=== PATIENT | female | born 1965 | race Caucasian/White ===

== ENCOUNTER → 2019-04-13 | Day surgery (SDC) | payer MEDICARE ==
[~2019-04-13] MED LIST: ACETAMINOPHEN325 M1 PO; ADVAIR 500/501 EA INH; ALBUTEROL0.63 MG/3 INH; BENADRYL25 M1 PO; BENZOCAINE/TETRACAINE/BUTAMBEN AERO SPRAY 56 GM CAN ONE; COMPLETE MULTI1 EAC1 PO; DOCUSATE SODIU100 MG PO; GLUCAGON FOR INJ 1 MG VIAL ONE; JANUVIA100 MG PO; LANTUS 3ML100 UNITS/ SQ; LISINOPRIL10 MG PO; LORATADINE10 MG PO; METFORMIN HCL1000 MG PEG; MIDAZOLAM HCL 2 MG/2 ML VIAL ONE; NOVOLOG100 UNIT/1 SQ; PROAIR HFA INH8.5 GM INH; PROPOFOL IV EMULSION 10 MG/ML 50 ML VIAL ONE; ZOLOFT50 MG PO; lorazepam PO
[2019-04-13 11:30] VITALS: BP 140/66
--- OUTSIDE RECORDS SUMMARY | 2019-04-23 10:20 | XMS REPORT ---
Author Author [facility] Address Unknown Phone Unavailable Care Team Providers Care Workers Compensation Adjuster Name Role Phone Unavailable Unavailable Problems This patient has no known problems. Allergies, Adverse Reactions, Alerts This patient has no known allergies or adverse reactions. Medications This patient has no known medications.
== END | disposition home or self-care (01) ==
LOC: OR 08:00
PROVIDERS: ATTEND Internal Medicine Gastroenterology
DX: K30 Functional dyspepsia (principal); Z88.6 Allergy status to analgesic agent; Z91.038 Other insect allergy status; Z88.0 Allergy status to penicillin; Z88.2 Allergy status to sulfonamides; Z88.8 Allergy status to other drugs, medicaments and biological substances; Z91.048 Other nonmedicinal substance allergy status; R10.32 Left lower quadrant pain; K59.00 Constipation, unspecified; K92.1 Melena; E11.9 Type 2 diabetes mellitus without complications; K21.9 Gastro-esophageal reflux disease without esophagitis; J44.9 Chronic obstructive pulmonary disease, unspecified; F31.9 Bipolar disorder, unspecified; I10 Essential (primary) hypertension; F41.0 Panic disorder [episodic paroxysmal anxiety]; G43.909 Migraine, unspecified, not intractable, without status migrainosus; M19.90 Unspecified osteoarthritis, unspecified site; F90.9 Attention-deficit hyperactivity disorder, unspecified type; F60.9 Personality disorder, unspecified; F44.9 Dissociative and conversion disorder, unspecified; Z79.4 Long term (current) use of insulin; D12.0 Benign neoplasm of cecum; D12.2 Benign neoplasm of ascending colon; D12.3 Benign neoplasm of transverse colon; D12.4 Benign neoplasm of descending colon; K57.90 Diverticulosis of intestine, part unspecified, without perforation or abscess without bleeding; K64.8 Other hemorrhoids; K44.9 Diaphragmatic hernia without obstruction or gangrene; K29.70 Gastritis, unspecified, without bleeding; K29.80 Duodenitis without bleeding; K21.0 Gastro-esophageal reflux disease with esophagitis; Z01.810 Encounter for preprocedural cardiovascular examination
CPT/HCPCS: 36415; 43239; 45380; 45384; 45385; 82948; 88305; 88312; 93005; J1610; J2250; J2704; 45378